=== PATIENT | female | born 1960 | race Caucasian/White ===

== ENCOUNTER 2017-02-22 06:23 | Observation (INO) | payer OTHER, SELFPAY | END 2017-02-23 10:25 | disposition home or self-care (01) | PROVIDERS: Admitting Provider Internal Medicine Adolescent Medicine; Emergency Provider Family Medicine; Visit Provider Internal Medicine Adolescent Medicine | DX: J45.901 Unspecified asthma with (acute) exacerbation (principal) | CPT/HCPCS: 36415; 71020; 80048; 80053; 81001; 83605; 85025; 86738; 87040; 87070; 87205; 94640; 94760; 96365; 96375; 99284; G0378; J1956 ==